=== PATIENT | female | born 1975 | race Caucasian/White ===

== ENCOUNTER 2017-10-16 06:05 | Inpatient (IN) | payer BC ==
[~2017-10-16] VITALS: Ht 167.6 cm; Wt 59.9 kg
[~2017-10-16 06:05] MED LIST: LEVSOD100 PO; PRED10 PO; WARF10 PO
[2017-10-16 07:20] LABS: International Normalized Ratio 0.99; Prothrombin Time Results 10.2 Sec (9.7-11.5)
[2017-10-17 06:10] LABS: BASOPHILS ABSOLUTE AUTO 0.05 K/mm3 (0.00-0.23); BASOPHILS PERCENT AUTO 1 % (0-2); EOSINOPHILS ABSOLUTE AUTO 0.02 K/mm3 (0.00-0.68); EOSINOPHILS PERCENT AUTO 0 % (0-6); Hemoglobin 9.9 g/dL (11.5-16.0); IMMATURE GRAN ABSOLUTE AUTO 0.02 K/mm3 (0.00-0.10); IMMATURE GRAN PERCENT AUTO 0 % (0-1); LYMPHOCYTES ABSOLUTE AUTO 1.81 K/mm3 (0.84-5.20); LYMPHOCYTES PERCENT AUTO 22 % (21-46); MONOCYTES ABSOLUTE AUTO 0.82 K/mm3 (0.16-1.47); MONOCYTES PERCENT AUTO 10 % (4-13); Mean Corpuscular HGB 28.9 pg (26.0-34.0); Mean Corpuscular HGB Conc 31.9 g/dL (31.5-36.5); Mean Corpuscular Volume 91 fL (80-100); Mean Platelet Volume 10.1 fL (9.1-12.4); NEUTROPHILS PERCENT AUTO 67 % (41-73); Platelet Count 241 K/mm3 (150-400); RDW Coefficient Variation 13.3 % (11.7-14.2); RDW Standard Deviation 43.7 fL (35.1-46.3); Red Blood Cell Count 3.42 M/mm3 (3.80-5.20); White Blood Cell Count 8.22 K/mm3 (4.00-11.30)
[2017-10-18 04:28] LABS: International Normalized Ratio 1.03; Prothrombin Time Results 10.6 Sec (9.7-11.5)
[2017-10-18] MEDS ORDERED: DOCU100 PO (09:05)
[2017-10-18] MEDS ORDERED: Percocet 5-3251 EACH PO (09:06)
[2017-10-18] MEDS ORDERED: ONDA4ODT MM (09:06)
== END 2017-10-18 09:57 | disposition home or self-care (01) | DRG 743 ==
LOC: ORSCMMR 06:05 → ORD 07:30 → ORSCMMR 09:54 → MEDS 09:55 → SURS 10:45
PROVIDERS: Obstetrics & Gynecology
PROC: 0UT20ZZ Resection of Bilateral Ovaries, Open Approach (ICD-10-PCS; 2017-10-16)
PROC: 0UT70ZZ Resection of Bilateral Fallopian Tubes, Open Approach (ICD-10-PCS; 2017-10-16)
PROC: 0WJJ0ZZ Inspection of Pelvic Cavity, Open Approach (ICD-10-PCS; principal; 2017-10-16 07:30)
PROC: 0UT90ZZ Resection of Uterus, Open Approach (ICD-10-PCS; 2017-10-16 07:30)
DX: D25.9 Leiomyoma of uterus, unspecified (principal); N92.0 Excessive and frequent menstruation with regular cycle; N83.202 Unspecified ovarian cyst, left side; N83.201 Unspecified ovarian cyst, right side; N73.6 Female pelvic peritoneal adhesions (postinfective); Z86.718 Personal history of other venous thrombosis and embolism; E89.0 Postprocedural hypothyroidism
CPT/HCPCS: 36415; 82565; 85025; 85610; 85730; J0690; J1100; J1650; J1885; J2250; J2405; J2710; J2765; J3010; J7030; J7120